=== PATIENT | female | born 1980 | race Caucasian/White ===

== ENCOUNTER → 2017-04-07 | Outpatient (CLI) | payer BC ==
[~2017-04-07] MED LIST: DOSS PO; NAPROXEN500 MG PO; NORVASC 5 MG TAB5 MG PO; PERCOCET 5-3251 EACH PO; PHENERGAN 12.12.5 M1 PO; PRILOSEC OTC20 MG PO; TOPROL XL50 MG PO; ULTRAM50 MG PO; VITAMIN B12-FO1 EACH PO; VITAMIN D35000 UNI1 PO
== END ==
LOC: ECHO 11:43
DX: R07.9 Chest pain, unspecified (principal); I10 Essential (primary) hypertension; R00.2 Palpitations
CPT/HCPCS: 78452; 93017; A9502; J2785

== ENCOUNTER 2021-02-03 23:19 | Observation (INO) | payer BC ==
[~2021-02-03] VITALS: Ht 167.6 cm; Wt 158.3 kg
[~2021-02-03 23:19] MED LIST changes: +ASPIRIN 325MG325 MG PO; +ATIVAN0.5 MG PO; +COL-RITE250 MG PO; +FLEXERIL 10 MG10 MG PO; +GLUCOPHAGE500 MG PO; +HYDROCODONE-HOMA5 ML PO; +LISINOPRIL-HCT1 EAC2 PO; +NORCO 5-325 TA1 EACH PO; +OMEPRAZOLE40 MG PO; +PERCOCET 7.5-31 EACH PO; -PRILOSEC OTC20 MG PO; +ZOFRAN4 MG PO; +ZOLOFT100 MG PO
[2021-02-04 01:24] LABS: HEMOGLOBIN 14.1 gm/dl (12.3-15.3); RED BLOOD COUNT 4.86 M/UL (4.00-5.10); WHITE BLOOD COUNT 13.6 K/UL (4.5-11.0)
[2021-02-04] MEDS ORDERED: ZESTORETIC 10-1 EACH PO (08:35)
[2021-02-04] MEDS ORDERED: FOLIC ACID 1 MG1 MG PO (08:35)
[2021-02-04] MEDS ORDERED: ZOLOFT50 MG PO (08:36)
[2021-02-04] MEDS ORDERED: TOPROL XL100 MG PO (08:36)
[2021-02-04] MEDS ORDERED: TOPAMAX25 MG PO (08:37)
[2021-02-04] MEDS ORDERED: GLUCOPHAGE XR500 MG PO (08:37)
[2021-02-04] MEDS ORDERED: ADIPEX-P37.5 M1 PO (08:39)
[2021-02-04] MEDS ORDERED: VITAMIN D 40400 UNIT PO (08:39)
[2021-02-04] MEDS ORDERED: ENBREL50 MG/1 M1 SQ (08:43)
[2021-02-04] MEDS ORDERED: ALLERGY RELIEF10 MG PO (08:44)
[2021-02-04] MEDS ORDERED: XYZAL5 MG PO (09:02)
[2021-02-04] MEDS ORDERED: CYCLOBENZAPRINE10 MG PO (09:03)
[2021-02-04] MEDS ORDERED: PEPCID40 MG PO (09:04)
[2021-02-04] MEDS ORDERED: BENTYL 20MG TAB20 MG PO (09:04)
[2021-02-04] MEDS ORDERED: PRILOSEC OTC20 MG PO (09:56)
[2021-02-05] MEDS ORDERED: LEVOFLOXACIN500 MG PO (10:01)
[2021-02-05] MEDS ORDERED: FLAGYL500 MG PO (10:01)
[2021-02-05] MEDS ORDERED: COLACE100 MG PO (11:48)
== END 2021-02-05 15:09 | disposition home or self-care (01) ==
LOC: ER1 23:19 → CDU 02-04 05:32 → M/S 02-04 05:32
PROVIDERS: Physician Assistant; ADMIT Internal Medicine
DX: A41.9 Sepsis, unspecified organism (principal); K57.32 Diverticulitis of large intestine without perforation or abscess without bleeding; L40.50 Arthropathic psoriasis, unspecified; K21.00 Gastro-esophageal reflux disease with esophagitis, without bleeding; G43.809 Other migraine, not intractable, without status migrainosus; I10 Essential (primary) hypertension; R73.03 Prediabetes; F41.9 Anxiety disorder, unspecified; E66.2 Morbid (severe) obesity with alveolar hypoventilation; Z68.43 Body mass index [BMI] 50.0-59.9, adult; Z20.822 Contact with and (suspected) exposure to COVID-19; Z79.84 Long term (current) use of oral hypoglycemic drugs; Z79.899 Other long term (current) drug therapy
CPT/HCPCS: 36415; 80053; 81001; 82550; 82553; 82962; 83036; 83605; 83690; 83874; 84484; 85025; 86140; 87040; 87086; 96365; 96368; 96372; 96374; 96375; 96376; 99285; C9113; G0378; J0696; J1650; J2270; J2405; J7030; Q9967; U0002

== ENCOUNTER → 2021-11-05 | Outpatient (CLI) | payer BC ==
[~2021-11-05] MED LIST changes: +ADIPEX-P37.5 M1 PO; +ALLERGY RELIEF10 MG PO; +BENTYL 20MG TAB20 MG PO; +COLACE100 MG PO; +CYCLOBENZAPRINE10 MG PO; +ENBREL50 MG/1 M1 SQ; +FLAGYL500 MG PO; +FOLIC ACID 1 MG1 MG PO; +GLUCOPHAGE XR500 MG PO; +LEVOFLOXACIN500 MG PO; +PEPCID40 MG PO; +PRILOSEC OTC20 MG PO; +TOPAMAX25 MG PO; +TOPROL XL100 MG PO; +VITAMIN D 40400 UNIT PO; +XYZAL5 MG PO; +ZESTORETIC 10-1 EACH PO; +ZOLOFT50 MG PO
== END ==
LOC: KOH-I 11:00
DX: J32.9 Chronic sinusitis, unspecified (principal); R51.9 Headache, unspecified
CPT/HCPCS: 70486

== ENCOUNTER 2022-04-24 10:25 | Emergency (ER) | payer BC ==
[2022-04-24 12:27] LABS: HEMOGLOBIN 13.3 gm/dl (12.3-15.3); RED BLOOD COUNT 4.62 M/UL (4.00-5.10)
[2022-04-24 12:48] LABS: BUN/CREATININE RATIO 12 (0-10)
[2022-04-24] MEDS ORDERED: AMOX TR-K CLV1 EAC4 PO (13:55)
[2022-04-24] MEDS ORDERED: ONDANSETRON ODT4 MG SL (13:55)
[2022-04-24] MEDS ORDERED: HYDROCODON-ACE1 EAC4 PO (14:00)
== END 2022-04-24 14:30 | disposition home or self-care (01) ==
LOC: ER1 10:25
PROVIDERS: Physician Assistant
DX: K57.32 Diverticulitis of large intestine without perforation or abscess without bleeding (principal); E11.9 Type 2 diabetes mellitus without complications; I10 Essential (primary) hypertension; K21.9 Gastro-esophageal reflux disease without esophagitis; Z87.442 Personal history of urinary calculi
CPT/HCPCS: 80053; 81001; 83605; 83690; 85025; 87040; 87086; 96374; 96375; 99284; J1885; J2270; J2405; Q9967